=== PATIENT | male | born 1995 | race American Indian/Alaskan Native ===

== ENCOUNTER 2022-01-27 01:16 | Emergency (ER) | payer OTHER ==
[2022-01-27 01:19] VITALS: BP 113/63
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
[2022-01-27] MEDS ORDERED: KETOROLAC 10 MG TAB PO ONE (02:07)
== END 2022-01-27 02:29 ==
LOC: ED 01:16
DX: M54.9 Dorsalgia, unspecified (principal); V89.2XXA Person injured in unspecified motor-vehicle accident, traffic, initial encounter; Y93.89 Activity, other specified; Y92.89 Other specified places as the place of occurrence of the external cause; Y99.8 Other external cause status
CPT/HCPCS: 99283

== ENCOUNTER 2022-01-27 06:47 | Emergency (ER) | payer OTHER ==
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
[2022-01-27 08:44] VITALS: BP 114/75
== END 2022-01-27 08:43 ==
LOC: ED 06:47
DX: S20.211A Contusion of right front wall of thorax, initial encounter (principal); M19.90 Unspecified osteoarthritis, unspecified site; F17.200 Nicotine dependence, unspecified, uncomplicated; Z72.89 Other problems related to lifestyle; V87.7XXA Person injured in collision between other specified motor vehicles (traffic), initial encounter; Y93.89 Activity, other specified; Y92.488 Other paved roadways as the place of occurrence of the external cause; Y99.8 Other external cause status
CPT/HCPCS: 99283